=== PATIENT | male | born 1955 | race Caucasian/White ===

== ENCOUNTER 2020-11-16 17:25 | Emergency (ER) | payer BC, MEDICARE ==
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
== END 2020-11-16 18:30 | disposition short-term general hospital (02) ==
LOC: VM.ED 17:25
DX: H54.7 Unspecified visual loss (principal)
CPT/HCPCS: 99284